=== PATIENT | female | born 1965 | race Caucasian/White ===

== ENCOUNTER 2016-09-08 06:28 | Emergency (ER) | payer BC ==
[2016-09-08] MEDS ORDERED: ONDANSETRON 4 MG ORAL DISINTEGRATING TAB (S0181) As Ordered ONE (07:30)
[2016-09-08] MEDS ORDERED: NORCO, ANEXSIA 5/325MG TABLET (HYDROcodone/ACETAMINOPHEN) As Ordered ONE (07:30)
--- NOTE | 2016-09-08 08:01 | REP ---
Clinical: Trauma. Technique: Internal rotation, external rotation, and Y view of the right shoulder. Findings: There is a comminuted fracture involving the distal clavicle. The glenohumeral joint appears intact without fracture or dislocation. The acromion process appears intact. The coracoid process appears intact. Impression: Comminuted fracture of the distal clavicle. Signed by Marlon Gonzalez MD 09/08/2016 07:53 A
--- NOTE | 2016-09-08 08:40 | EDDOCDS ---
Physician Documentation [facility] Name: Kiara Del Valle Age: 51 yrs Sex: Female : 1965 Arrival Date: 09/08/2016 Time: 06:28 Bed 5 Private MD: Disposition: 09/08/16 08:25 Discharged to Home/Self Care. Impression: Fracture of clavicle - Closed Comminuted Fracture involving the Right distal clavicle. - Condition is Stable. - Discharge Instructions: Clavicle Fracture, [id number]. - Prescriptions for [place] 5- 325 mg Oral Tablet - take 1 tablet by ORAL route every 6 hours As needed MDD: 4 tabs; 20 tablet. ZOFRAN ODT 4 mg - dissolve 1 tablet by ORAL route 4 times per day As needed do not chew, do not swallow whole; 10 tablet. - Medication Reconciliation, Referral List Call for Appointment, Local Pharmacy Hours form. - Follow up: [facility]; When: 1 - 2 days; Reason: Further diagnostic work-up, Recheck today's complaints, Continuance of care. Follow up: Emergency Department; Reason: Worsening of conditions. - Problem is new. - Symptoms have improved. Historical: - Allergies: Contrast Dye; - Home Meds: 1. none - PMHx: none; - PSHx: none; - Social history: Smoking status: Patient uses tobacco products, current every day smoker. No barriers to communication noted, The patient speaks fluent Micronesian. - Family history: Not pertinent. - : The pt / caregiver states he / she is not on anticoagulants. Home medication list is obtained from the patient. - Exposure Risk Screening:: None identified. 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 5 in. (165.10 cm) (R); Pain 10/10; 08:33 BP 126 / 84; Pulse 78; Resp 16; Temp 98.2(O); Pulse Ox 98% on R/A; Pain 8/10; ck1 08:39 Pain 8/10; ck1 06:34 Body Mass Index 23.30 (63.50 kg, 165.10 cm) af2 Procedures: 08:24 Fracture care/splinting: Splint applied to right clavicle using sling, applied by ef1 nurse. Examined by me, post splint application: neurovascular intact, 2+ distal pulses palpable, brisk capillary refill noted, Patient tolerated well. MDM: 06:41 Shoulder, Complete Ordered. EDMS 07:27 HYDROcodone-acetaminophen 5 mg-325 mg 1 tabs PO once ordered. ef1 07:27 Ondansetron ODT Oral Disintegrating Tablet 4 mg PO once ordered. ef1 07:27 Ice Pack ordered. ef1 07:37 Financial registration complete. hs2 07:45 PENDING SALE TO [facility] Payment Agreement was scanned into [employer] and attached to record. hs2 08:21 Sling ordered. ef1 Administered Medications: 07:32 Drug: HYDROcodone-acetaminophen 1 tabs [hydrocodone 5 mg-acetaminophen 325 mg tablet (1 mlb1 tabs)] Route: PO; 08:39 Follow up: Pain 04/03 Adult; Response: Confirmed pt not driving.; No Adverse Reaction; ck1 Pain is decreased 07:32 Drug: Ondansetron ODT 4 mg [ondansetron 4 mg disintegrating tablet (1 tabs)] Route: PO; mlb1 Signatures: Dispatcher [employer] EDMS Andie Chin,RN RN ck1 Jeane Mederos, PA-C PAZohraC ef1 Nisha Cabrera RN RN af2 Elsy Sheth, Reg Reg hs2 Boyd Ruiz RN mlb1 The chart was reviewed and I authenticate all verbal orders and agree with the evaluation and treatment provided.Attachments: 07:45 PENDING S[facility] TO [facility] Payment Agreement hs2 MTDD
--- NOTE | 2016-09-08 08:40 | EDDOCDS ---
Nurse's Notes [facility] Name: Kiara Del Valle Age: 51 yrs Sex: Female : 1965 Arrival Date: 09/08/2016 Time: 06:28 Bed 5 Private MD: Diagnosis: Fracture of clavicle-Closed Comminuted Fracture involving the Right distal clavicle Presentation: 09/08 06:36 Presenting complaint: Patient states: tripped and landed on right shoulder, clavicle af2 area. Adult Sepsis Screening: The patient does not have new or worsening altered mentation. Patient's respiratory rate is less than 22. Systolic blood pressure is greater than 100. Patient has a qSOFA score of 0- Negative Sepsis Screen. Suicide/Homicide risk assessment- the patient denies having any suicidal and/or homicidal ideations and does not present with any other emotional, behavioral or mental health complaints. 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 Transition of care: patient was not received from another setting of care. 06:36 Acuity: TALAT Level 4 af2 06:36 Method Of Arrival: Walkin/Carried/Asstd af2 Triage Assessment: 06:37 General: Appears uncomfortable, Behavior is cooperative. Pain: Location: anterior af2 aspect of right shoulder Pain currently is 10 out of 10 on a pain scale. Pt Declines HIV testing. Musculoskeletal: pt guarding right shoulder, movement limited due to pain. 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 none - PMHx: none; - PSHx: none; - Social history: Smoking status: Patient uses tobacco products, current every day smoker. No barriers to communication noted, The patient speaks fluent Pashto. - Family history: Not pertinent. - : The pt / caregiver states he / she is not on anticoagulants. Home medication list is obtained from the patient. - Exposure Risk Screening:: None identified. Screenin:34 Screening information is obtained from the patient. Fall risk: No risks identified. ck1 Assistance ADL's: requires no assistance with activities of daily living. Abuse/DV Screen: The patient / caregiver reports he/she is: not in a situation that causes fear, pain or injury. Nutritional screening: No deficits noted. Advance Directives: Currently, there is no health care proxy. home support is adequate. Assessment: 06:42 General: Appears uncomfortable. General: Patient reports tingling in right arm. nn1 Swelling noted of right shoulder. Patient guarding right shoulder. . Pain: Location: anterior aspect of right shoulder Pain currently is 10 out of 10 on a pain scale. Neurological: Level of Consciousness is awake, alert, Oriented to person, place, time. Respiratory: Airway is patent Respiratory effort is even, unlabored, Respiratory pattern is regular, symmetrical. Musculoskeletal: cervical spine is non-tender. Circulation, motion, and sensation intact Capillary refill < 3 seconds Range of motion limited in right shoulder Swelling present in right trapezius and right scapular area. 07:30 General: Appears uncomfortable, Behavior is appropriate for age, cooperative. Pain: mlb1 Location: right clavicle Pain currently is 10 out of 10 on a pain scale. Musculoskeletal: Circulation, motion, and sensation intact. 08:38 General: Appears in no apparent distress, comfortable, Behavior is appropriate for age, ck1 cooperative. Pain: Location: right shoulder Pain currently is 8 out of 10 on a pain scale. Neurological: Level of Consciousness is awake, alert, obeys commands, Oriented to person, place, time. Derm: Skin is intact, is healthy with good turgor, Skin is pink, warm & dry. Musculoskeletal: Circulation, motion, and sensation intact Range of motion limited in right shoulder. Vital Signs: 06:34 BP 148 / 91 LA Standing (auto/); Pulse 89; Resp 18 S; Temp 97.5(O); Pulse Ox 98% on af2 R/A; Weight 63.5 kg (R); Height 5 ft. 5 in. (165.10 cm) (R); Pain 10/10; 08:33 BP 126 / 84; Pulse 78; Resp 16; Temp 98.2(O); Pulse Ox 98% on R/A; Pain 8/10; ck1 08:39 Pain 8/10; ck1 06:34 Body Mass Index 23.30 (63.50 kg, 165.10 cm) af2 Vitals: 06:34 Log In Time: September 08, 2016 at 06:28. af2 ED Course: 06:29 Patient visited by Dalia Weaver. gjb 06:29 Patient moved to Waiting gjb 06:37 Triage Initiated af2 06:38 Patient visited by Nisha Cabrera RN. af2 06:38 Patient moved to 5 af2 06:44 Patient visited by Courtney Mike RN. kas2 07:07 [facility] Mederos [facility]C [facility] ef1 07:07 Hollis Mcgee MD is Attending Physician. ef1 07:07 Patient visited by Jeane Mederos PA-C. ef1 07:41 Patient visited by Jeane Mederos PA-C. ef1 07:45 [facility] Payment Agreement was scanned into [employer] and attached to record. hs2 07:56 Patient visited by Boyd Ruiz RN. mlb1 08:20 Patient visited by Jeane Mederos PA-C. ef1 08:[facility]. ef1 08:32 Shoulder, Complete Returned. EDMS 08:34 The patient / caregiver is instructed regarding the plan of care and ED course. ck1 08:34 No IV's were initiated during this patient's visit. No procedures done that require ck1 assistance. 08:38 Sling applied to right arm. Patient with positive distal sensation and brisk distal ck1 capillary refill after application. Administered Medications: 07:32 Drug: HYDROcodone-acetaminophen 1 tabs [hydrocodone 5 mg-acetaminophen 325 mg tablet (1 mlb1 tabs)] Route: PO; 08:39 Follow up: Pain 8/10 Adult; Response: Confirmed pt not driving.; No Adverse Reaction; ck1 Pain is decreased 07:32 Drug: Ondansetron ODT 4 mg [ondansetron 4 mg disintegrating tablet (1 tabs)] Route: PO; mlb1 Order Results: Radiology Order: Shoulder, Complete Test: Shoulder, Complete REASON FOR EXAMINATION: Trauma; Clinical: Trauma.; ; Technique: Internal rotation, external rotation, and Y view of the right; shoulder.; ; Findings:; There is a comminuted fracture involving the distal clavicle. The glenohumeral; joint appears intact without fracture or dislocation. The acromion process; appears intact. The coracoid process appears intact.; ; Impression:; Comminuted fracture of the distal clavicle.; ; ; Signed by; Marlon Gonzalez MD 09/08/2016 07:53 A; Outcome: 08:25 Discharge ordered by Provider. ef1 08:34 Discharge Assessment: Patient awake, alert and oriented x 3. No cognitive and/or ck1 functional deficits noted. Patient verbalized understanding of disposition instructions. patient administered narcotics - yes. Pt provided with safe discharge. The following High Risk Discharge criteria are identified: None. Discharged to home ambulatory. Condition: stable. No special radiology studies were completed. Property :Personal belongings accompany Pt. 08:35 Discharge instructions given to patient, Instructed on discharge instructions, follow ck1 up and referral plans. medication usage, Demonstrated understanding of instructions, medications, Pt was receptive of discharge instructions/ teaching. Prescriptions given X 2. 08:39 Patient left the ED. ck1 Signatures: Dispatcher [employer] EDPR Boyd Ruiz RN RN mlb1 Andie ChinRN RN ck1 Jeane Mederos, PA-C PA-C ef1 Nisha Cabrera,RN RN af2 Wenceslao Lee,RN RN nn1 Dalia Weaver Hillary, Reg Reg hs2 Courtney Mike,RN RN kas2 MTDD
--- NOTE | 2016-09-10 09:41 | EDDOCDS ---
Nurse's Notes [facility] Name: Kiara Del Valle Age: 51 yrs Sex: Female : 1965 Arrival Date: 09/08/2016 Time: 06:28 Bed 5 Private MD: Diagnosis: Fracture of clavicle-Closed Comminuted Fracture involving the Right distal clavicle Presentation: 09/08 06:36 Presenting complaint: Patient states: tripped and landed on right shoulder, clavicle af2 area. Adult Sepsis Screening: The patient does not have new or worsening altered mentation. Patient's respiratory rate is less than 22. Systolic blood pressure is greater than 100. Patient has a qSOFA score of 0- Negative Sepsis Screen. Suicide/Homicide risk assessment- the patient denies having any suicidal and/or homicidal ideations and does not present with any other emotional, behavioral or mental health complaints. Status: Patient is not a general service technician or dependent. Transition of care: patient was not received from another setting of care. 06:36 Acuity: TALAT Level 4 af2 06:36 Method Of Arrival: Walkin/Carried/Asstd af2 Triage Assessment: 06:37 General: Appears uncomfortable, Behavior is cooperative. Pain: Location: anterior af2 aspect of right shoulder Pain currently is 10 out of 10 on a pain scale. Pt Declines HIV testing. Musculoskeletal: pt guarding right shoulder, movement limited due to pain. 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 none - PMHx: none; - PSHx: none; - Social history: Smoking status: Patient uses tobacco products, current every day smoker. No barriers to communication noted, The patient speaks fluent Lithuanian. - Family history: Not pertinent. - : The pt / caregiver states he / she is not on anticoagulants. Home medication list is obtained from the patient. - Exposure Risk Screening:: None identified. Screenin:34 Screening information is obtained from the patient. Fall risk: No risks identified. ck1 Assistance ADL's: requires no assistance with activities of daily living. Abuse/DV Screen: The patient / caregiver reports he/she is: not in a situation that causes fear, pain or injury. Nutritional screening: No deficits noted. Advance Directives: Currently, there is no health care proxy. home support is adequate. Assessment: 06:42 General: Appears uncomfortable. General: Patient reports tingling in right arm. nn1 Swelling noted of right shoulder. Patient guarding right shoulder. . Pain: Location: anterior aspect of right shoulder Pain currently is 10 out of 10 on a pain scale. Neurological: Level of Consciousness is awake, alert, Oriented to person, place, time. Respiratory: Airway is patent Respiratory effort is even, unlabored, Respiratory pattern is regular, symmetrical. Musculoskeletal: cervical spine is non-tender. Circulation, motion, and sensation intact Capillary refill < 3 seconds Range of motion limited in right shoulder Swelling present in right trapezius and right scapular area. 07:30 General: Appears uncomfortable, Behavior is appropriate for age, cooperative. Pain: mlb1 Location: right clavicle Pain currently is 10 out of 10 on a pain scale. Musculoskeletal: Circulation, motion, and sensation intact. 08:38 General: Appears in no apparent distress, comfortable, Behavior is appropriate for age, ck1 cooperative. Pain: Location: right shoulder Pain currently is 8 out of 10 on a pain scale. Neurological: Level of Consciousness is awake, alert, obeys commands, Oriented to person, place, time. Derm: Skin is intact, is healthy with good turgor, Skin is pink, warm & dry. Musculoskeletal: Circulation, motion, and sensation intact Range of motion limited in right shoulder. Vital Signs: 06:34 BP 148 / 91 LA Standing (auto/); Pulse 89; Resp 18 S; Temp 97.5(O); Pulse Ox 98% on af2 R/A; Weight 63.5 kg (R); Height 5 ft. 5 in. (165.10 cm) (R); Pain 10/10; 08:33 BP 126 / 84; Pulse 78; Resp 16; Temp 98.2(O); Pulse Ox 98% on R/A; Pain 8/10; ck1 08:39 Pain 8/10; ck1 06:34 Body Mass Index 23.30 (63.50 kg, 165.10 cm) af2 Vitals: 06:34 Log In Time: September 08, 2016 at 06:28. af2 ED Course: 06:29 Patient visited by Dalia Weaver. gjb 06:29 Patient moved to Waiting gjb 06:37 Triage Initiated af2 06:38 Patient visited by Nisha Cabrera RN. af2 06:38 Patient moved to 5 af2 06:44 Patient visited by Courtney Mike RN. kas2 07:07 Jeane Mederos [facility]C [facility] ef1 07:07 Hollis Mcgee MD is Attending Physician. ef1 07:07 Patient visited by Jeane Mederos PA-C. ef1 07:41 Patient visited by Jeane Mederos PA-C. ef1 07:45 [facility] Payment Agreement was scanned into [employer] and attached to record. hs2 07:56 Patient visited by Boyd Ruiz RN. mlb1 08:20 Patient visited by Jeane Mederos PA-C. ef1 08:[facility]. ef1 08:32 Shoulder, Complete Returned. EDMS 08:34 The patient / caregiver is instructed regarding the plan of care and ED course. ck1 08:34 No IV's were initiated during this patient's visit. No procedures done that require ck1 assistance. 08:38 Sling applied to right arm. Patient with positive distal sensation and brisk distal ck1 capillary refill after application. 11:53 T-Sheet-- Draft Copy was scanned into [employer] and attached to record. [facility] 09/09 12:02 Radiology Report was scanned into [employer] and attached to record. gb Administered Medications: 09/08 07:32 Drug: HYDROcodone-acetaminophen 1 tabs [hydrocodone 5 mg-acetaminophen 325 mg tablet (1 mlb1 tabs)] Route: PO; 08:39 Follow up: Pain 8/10 Adult; Response: Confirmed pt not driving.; No Adverse Reaction; ck1 Pain is decreased 07:32 Drug: Ondansetron ODT 4 mg [ondansetron 4 mg disintegrating tablet (1 tabs)] Route: PO; mlb1 Order Results: Radiology Order: Shoulder, Complete Test: Shoulder, Complete REASON FOR EXAMINATION: Trauma; Clinical: Trauma.; ; Technique: Internal rotation, external rotation, and Y view of the right; shoulder.; ; Findings:; There is a comminuted fracture involving the distal clavicle. The glenohumeral; joint appears intact without fracture or dislocation. The acromion process; appears intact. The coracoid process appears intact.; ; Impression:; Comminuted fracture of the distal clavicle.; ; ; Signed by; Marlon Gonzalez MD 09/08/2016 07:53 A; Outcome: 08:25 Discharge ordered by Provider. ef1 08:34 Discharge Assessment: Patient awake, alert and oriented x 3. No cognitive and/or ck1 functional deficits noted. Patient verbalized understanding of disposition instructions. patient administered narcotics - yes. Pt provided with safe discharge. The following High Risk Discharge criteria are identified: None. Discharged to home ambulatory. Condition: stable. No special radiology studies were completed. Property :Personal belongings accompany Pt. 08:35 Discharge instructions given to patient, Instructed on discharge instructions, follow ck1 up and referral plans. medication usage, Demonstrated understanding of instructions, medications, Pt was receptive of discharge instructions/ teaching. Prescriptions given X 2. 08:39 Patient left the ED. ck1 Signatures: Dispatcher [employer] EDMS Bernie Grover, Reg Reg gb Boyd Ruiz RN RN mlb1 Andie ChinRN RN ck1 Jeane Mederos, PA-C PA-C ef1 Nisha Cabrera,RN RN af2 Wenceslao LeeRN RN nn1 Dalia Weaver gjb Elsy Sheth, Reg Reg hs2 Courtney Mike,RN RN [facility]2 Mireille Shi Chart Complete MTDD
--- NOTE | 2016-09-10 09:41 | EDDOCDS ---
Physician Documentation [facility] Name: Kiara Del Valle Age: 51 yrs Sex: Female : 1965 Arrival Date: 09/08/2016 Time: 06:28 Bed 5 Private MD: Disposition: 09/08/16 08:25 Discharged to Home/Self Care. Impression: Fracture of clavicle - Closed Comminuted Fracture involving the Right distal clavicle. - Condition is Stable. - Discharge Instructions: Clavicle Fracture, [id number]. - Prescriptions for [place] 5- 325 mg Oral Tablet - take 1 tablet by ORAL route every 6 hours As needed MDD: 4 tabs; 20 tablet. ZOFRAN ODT 4 mg - dissolve 1 tablet by ORAL route 4 times per day As needed do not chew, do not swallow whole; 10 tablet. - Medication Reconciliation, Referral List Call for Appointment, Local Pharmacy Hours form. - Follow up: [facility]; When: 1 - 2 days; Reason: Further diagnostic work-up, Recheck today's complaints, Continuance of care. Follow up: Emergency Department; Reason: Worsening of conditions. - Problem is new. - Symptoms have improved. Historical: - Allergies: Contrast Dye; - Home Meds: 1. none - PMHx: none; - PSHx: none; - Social history: Smoking status: Patient uses tobacco products, current every day smoker. No barriers to communication noted, The patient speaks fluent Pashto. - Family history: Not pertinent. - : The pt / caregiver states he / she is not on anticoagulants. Home medication list is obtained from the patient. - Exposure Risk Screening:: None identified. 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 5 in. (165.10 cm) (R); Pain 10/10; 08:33 BP 126 / 84; Pulse 78; Resp 16; Temp 98.2(O); Pulse Ox 98% on R/A; Pain 8/10; ck1 08:39 Pain 8/10; ck1 06:34 Body Mass Index 23.30 (63.50 kg, 165.10 cm) af2 Procedures: 08:24 Fracture care/splinting: Splint applied to right clavicle using sling, applied by ef1 nurse. Examined by me, post splint application: neurovascular intact, 2+ distal pulses palpable, brisk capillary refill noted, Patient tolerated well. MDM: 06:41 Shoulder, Complete Ordered. EDMS 07:27 HYDROcodone-acetaminophen 5 mg-325 mg 1 tabs PO once ordered. ef1 07:27 Ondansetron ODT Oral Disintegrating Tablet 4 mg PO once ordered. ef1 07:27 Ice Pack ordered. ef1 07:37 Financial registration complete. hs2 07:45 [facility] Payment Agreement was scanned into [employer] and attached to record. hs2 08:21 Sling ordered. ef1 11:53 T-Sheet-- Draft Copy was scanned into [employer] and attached to record. [facility] 09/09 12:02 Radiology Report was scanned into [employer] and attached to record. gb Administered Medications: 09/08 07:32 Drug: HYDROcodone-acetaminophen 1 tabs [hydrocodone 5 mg-acetaminophen 325 mg tablet (1 mlb1 tabs)] Route: PO; 08:39 Follow up: Pain 8/10 Adult; Response: Confirmed pt not driving.; No Adverse Reaction; ck1 Pain is decreased 07:32 Drug: Ondansetron ODT 4 mg [ondansetron 4 mg disintegrating tablet (1 tabs)] Route: PO; mlb1 Signatures: Dispatcher [employer] EDDE Bernie Grover, Reg Reg gb Andie Chin RN RN ck1 Jeane Mederos, PA-C PAZohraC ef1 Nisha Cabrera RN RN af2 Elsy Sheth, Reg Reg hs2 Mireille Shi Michael B RN mlb1 The chart was reviewed and I authenticate all verbal orders and agree with the evaluation and treatment provided.Attachments: 07:45 [facility] Payment Agreement hs2 11:53 T-Sheet-- Draft Copy [facility] Chart Complete MTDD
--- NOTE | 2016-09-10 09:41 | EDDOCDS ---
Physician Documentation [facility] Name: Kiara Del Valle Age: 51 yrs Sex: Female : 1965 Arrival Date: 09/08/2016 Time: 06:28 Bed 5 Private MD: Disposition: 09/08/16 08:25 Discharged to Home/Self Care. Impression: Fracture of clavicle - Closed Comminuted Fracture involving the Right distal clavicle. - Condition is Stable. - Discharge Instructions: Clavicle Fracture, [id number]. - Prescriptions for [place] 5- 325 mg Oral Tablet - take 1 tablet by ORAL route every 6 hours As needed MDD: 4 tabs; 20 tablet. ZOFRAN ODT 4 mg - dissolve 1 tablet by ORAL route 4 times per day As needed do not chew, do not swallow whole; 10 tablet. - Medication Reconciliation, Referral List Call for Appointment, Local Pharmacy Hours form. - Follow up: [facility]; When: 1 - 2 days; Reason: Further diagnostic work-up, Recheck today's complaints, Continuance of care. Follow up: Emergency Department; Reason: Worsening of conditions. - Problem is new. - Symptoms have improved. Historical: - Allergies: Contrast Dye; - Home Meds: 1. none - PMHx: none; - PSHx: none; - Social history: Smoking status: Patient uses tobacco products, current every day smoker. No barriers to communication noted, The patient speaks fluent Swedish. - Family history: Not pertinent. - : The pt / caregiver states he / she is not on anticoagulants. Home medication list is obtained from the patient. - Exposure Risk Screening:: None identified. ADMINISTRATIVE COORDINATOR: 09/08 06:34 LMP 09/08/2016 af2 Vital Signs: 06:34 BP 148 / 91 LA Standing (auto/); Pulse 89; Resp 18 S; Temp 97.5(O); Pulse Ox 98% on af2 R/A; Weight 63.5 kg / 139.99 lbs (R); Height 5 ft. 5 in. (165.10 cm) (R); Pain 10/10; 08:33 BP 126 / 84; Pulse 78; Resp 16; Temp 98.2(O); Pulse Ox 98% on R/A; Pain 8/10; ck1 08:39 Pain 8/10; ck1 06:34 Body Mass Index 23.30 (63.50 kg, 165.10 cm) af2 Procedures: 08:24 Fracture care/splinting: Splint applied to right clavicle using sling, applied by ef1 nurse. Examined by me, post splint application: neurovascular intact, 2+ distal pulses palpable, brisk capillary refill noted, Patient tolerated well. MDM: 06:41 Shoulder, Complete Ordered. EDMS 07:27 HYDROcodone-acetaminophen 5 mg-325 mg 1 tabs PO once ordered. ef1 07:27 Ondansetron ODT Oral Disintegrating Tablet 4 mg PO once ordered. ef1 07:27 Ice Pack ordered. ef1 07:37 Financial registration complete. hs2 07:45 [facility] Payment Agreement was scanned into [employer] and attached to record. hs2 08:21 Sling ordered. ef1 11:53 T-Sheet-- Draft Copy was scanned into [employer] and attached to record. [facility] [place] 09/09 12:02 Radiology Report was scanned into [employer] and attached to record. gb Administered Medications: 09/08 07:32 Drug: HYDROcodone-acetaminophen 1 tabs [hydrocodone 5 mg-acetaminophen 325 mg tablet (1 mlb1 tabs)] Route: PO; 08:39 Follow up: Pain 8/10 Adult; Response: Confirmed pt not driving.; No Adverse Reaction; ck1 Pain is decreased 07:32 Drug: Ondansetron ODT 4 mg [ondansetron 4 mg disintegrating tablet (1 tabs)] Route: PO; mlb1 Signatures: Dispatcher Med[employer] EDMD Bernie Grover, Reg Reg gb Andie Chin RN RN ck1 Jeane Mederos, PA-C PAZohraC ef1 Nisha Cabrera RN RN af2 Elsy Sheth, Reg Reg hs2 Mireille Shi Michael B RN mlb1 The chart was reviewed and I authenticate all verbal orders and agree with the evaluation and treatment provided.Attachments: 07:45 [facility] Payment Agreement hs2 11:53 T-Sheet-- Draft Copy [facility] [place] [facility] Chart Complete MTDD
== END 2016-09-08 08:39 | disposition home or self-care (01) ==
LOC: M ED 06:28
DX: S42.031A Displaced fracture of lateral end of right clavicle, initial encounter for closed fracture (principal); W01.0XXA Fall on same level from slipping, tripping and stumbling without subsequent striking against object, initial encounter; Y92.019 Unspecified place in single-family (private) house as the place of occurrence of the external cause; Y93.89 Activity, other specified; Y99.8 Other external cause status; F17.210 Nicotine dependence, cigarettes, uncomplicated; Z91.041 Radiographic dye allergy status

== ENCOUNTER → 2018-10-09 | Outpatient (REF) | payer BC | LOC: M LAB REF 19:16 | PROVIDERS: ATTEND Physician Assistant Medical | DX: N39.0 Urinary tract infection, site not specified (principal) ==

== ENCOUNTER → 2019-03-11 | Outpatient (REF) | payer BC ==
[2019-03-11 11:39] LABS: BASO % 0.5 % (0.0-1.0); EOS % 0.8 % (0.0-3.0); HEMATOCRIT 39.7 % (36.0-47.0); HEMOGLOBIN 13.6 g/dl (12.0-15.5); LYMPH % 24.8 % (24.0-44.0); MEAN CORPUSCULAR HEMOGLOBIN 31.2 pg (27.0-33.0); MEAN CORPUSCULAR HGB CONC 34.3 g/dl (32.0-36.5); MEAN CORPUSCULAR VOLUME 91.1 fl (80.0-96.0); MONO # 0.5 10^3/uL (0.0-0.8); MONO % 13.8 % (0.0-5.0); NEUTROPHILS # 2.3 10^3/uL (1.8-7.7); NEUTROPHILS % 59.8 % (36.0-66.0); PLATELET COUNT, AUTOMATED 221 10^3/uL (150-450); RED BLOOD COUNT 4.36 10^6/uL (4.00-5.40); WHITE BLOOD COUNT 3.9 10^3/uL (4.0-10.0)
[2019-03-11 12:21] LABS: ALBUMIN 4.1 GM/DL (3.2-5.2); ALT/SGPT 43 U/L (12-78); BILIRUBIN,TOTAL 0.3 MG/DL (0.2-1.0); BLOOD UREA NITROGEN 7 MG/DL (7-18); CALCIUM LEVEL 9.6 MG/DL (8.5-10.1); CARBON DIOXIDE LEVEL 24 MEQ/L (21-32); CHLORIDE LEVEL 103 MEQ/L (98-107); CHOLESTEROL LEVEL 212 MG/DL (<200); CHOLESTEROL RISK RATIO 1.944 (<5); CREATININE FOR GFR 0.55 MG/DL (0.55-1.30); FREE T4 0.78 NG/DL (0.76-1.46); GLOMERULAR FILTRATION RATE > 60.0 (>51); GLUCOSE, FASTING 71 MG/DL (70-100); HDL CHOLESTEROL 109 MG/DL (>40); LDL CHOLESTEROL 91 MG/DL (<100); NON-HDL-C 103 MG/DL; POTASSIUM SERUM 4.2 MEQ/L (3.5-5.1); SODIUM LEVEL 136 MEQ/L (136-145); TOTAL 25(OH) VITAMIN D 23.4 NG/ML (30.0-100.0); TRIGLYCERIDES LEVEL 60 MG/DL (<150)
== END ==
LOC: M LABNEURO 07:36
PROVIDERS: ATTEND Physician Assistant
DX: Z13.220 Encounter for screening for lipoid disorders (principal); Z13.29 Encounter for screening for other suspected endocrine disorder; Z13.21 Encounter for screening for nutritional disorder

== ENCOUNTER → 2019-06-03 | Outpatient (REF) | payer BC ==
[2019-06-03 12:43] LABS: BASO % 0.6 % (0.0-1.0); EOS % 0.3 % (0.0-3.0); HEMATOCRIT 42.3 % (36.0-47.0); HEMOGLOBIN 13.7 g/dl (12.0-15.5); LYMPH # 0.9 10^3/uL (1.5-5.0); LYMPH % 24.8 % (24.0-44.0); MEAN CORPUSCULAR HEMOGLOBIN 30.9 pg (27.0-33.0); MEAN CORPUSCULAR HGB CONC 32.4 g/dl (32.0-36.5); MEAN CORPUSCULAR VOLUME 95.3 fl (80.0-96.0); MONO # 0.6 10^3/uL (0.0-0.8); MONO % 16.9 % (0.0-5.0); NEUTROPHILS % 57.1 % (36.0-66.0); PLATELET COUNT, AUTOMATED 208 10^3/uL (150-450); RED BLOOD COUNT 4.44 10^6/uL (4.00-5.40); WHITE BLOOD COUNT 3.4 10^3/uL (4.0-10.0)
[2019-06-03 12:57] LABS: ALT/SGPT 31 U/L (12-78); BLOOD UREA NITROGEN 12 MG/DL (7-18); CARBON DIOXIDE LEVEL 29 MEQ/L (21-32); CHLORIDE LEVEL 100 MEQ/L (98-107); GLOMERULAR FILTRATION RATE > 60.0 (>51); GLUCOSE, FASTING 88 MG/DL (70-100); POTASSIUM SERUM 4.5 MEQ/L (3.5-5.1); SODIUM LEVEL 135 MEQ/L (136-145)
[2019-06-03 12:58] LABS: ALBUMIN 4.3 GM/DL (3.2-5.2); BILIRUBIN,TOTAL 0.7 MG/DL (0.2-1.0); CHOLESTEROL LEVEL 204 MG/DL (<200); CHOLESTEROL RISK RATIO 1.743 (<5); HDL CHOLESTEROL 117 MG/DL (>40); LDL CHOLESTEROL 78 MG/DL (<100); NON-HDL-C 87 MG/DL; TOTAL 25(OH) VITAMIN D 55.4 NG/ML (30.0-100.0); TOTAL PROTEIN 7.1 GM/DL (6.4-8.2); TRIGLYCERIDES LEVEL 43 MG/DL (<150)
== END ==
LOC: M LABDRAW1 12:17
PROVIDERS: ATTEND Physician Assistant
DX: E55.9 Vitamin D deficiency, unspecified (principal); D72.819 Decreased white blood cell count, unspecified; E78.5 Hyperlipidemia, unspecified

== ENCOUNTER → 2021-03-14 | Outpatient (CLI) | payer BC ==
[~2021-03-14] MED LIST: VITA500045 PO
--- NOTE | 2021-03-14 08:27 | REP ---
INDICATION: LIVER LESION. COMPARISON: Ultrasound 02/18/2013, three-phase CT 02/11/2013 TECHNIQUE: Right upper quadrant standard sonography with color imaging. FINDINGS: Of the liver is not grossly enlarged with vertical diameter 15.2 cm in the midclavicular line. There is homogeneous but slightly hyperechoic echotexture consistent with diffuse fatty infiltration. There is no discrete mass visible. Particular attention to the posterior right lobe of the liver medially near the upper pole the right kidney where a liver lesion is seen the studies 8 years ago. There is no visible mass or sonographic abnormality in this region today. There is no evidence of ascites. The gallbladder shows no stone, sludge, wall thickening or pericholecystic fluid. Common bile duct is 5.4 mm and without a visible stone. Visible portions of pancreas were unremarkable. Its tail is obscured by gas. Right kidney is 10.2 x 5.6 x 4.8 cm without gross hydronephrosis, mass or stone. No generalized ascites in the upper abdomen. IMPRESSION: Some fatty infiltration liver without hepatomegaly, focal hepatic mass or intrahepatic biliary dilatation. The hypoechoic lesion seen on ultrasound and CT 8 years ago is not seen on this current study. Gallbladder, common bile duct, visible portion of the pancreas and right kidney are unremarkable. No ascites. <Electronically signed by Mauri Mclaughlin > 03/14/21 [id number]
== END ==
LOC: M RAD 06:56
PROVIDERS: ATTEND Physician Assistant
DX: K76.9 Liver disease, unspecified (principal)

== ENCOUNTER → 2023-06-24 | Outpatient (REF) | payer BC ==
[2023-06-24 13:43] LABS: HEMATOCRIT 45.1 % (36.0-47.0); HEMOGLOBIN 14.9 g/dl (12.0-15.5); MEAN CORPUSCULAR HEMOGLOBIN 31.5 pg (27.0-33.0); MEAN CORPUSCULAR VOLUME 95.3 fl (80.0-96.0); PLATELET COUNT, AUTOMATED 225 10^3/uL (150-450); RED BLOOD COUNT 4.73 10^6/uL (4.00-5.40); WHITE BLOOD COUNT 4.7 10^3/uL (4.0-10.0)
[2023-06-24 14:12] LABS: ALBUMIN 4.4 G/DL (3.2-5.2); ALKALINE PHOSPHATASE 90 U/L (46-116); ALT/SGPT 35 U/L (7.0-40); AST/SGOT 30 U/L (<34); BILIRUBIN,TOTAL 0.5 MG/DL (0.3-1.2); BLOOD UREA NITROGEN 8 MG/DL (9-23); CALCIUM LEVEL 10.3 MG/DL (8.5-10.1); CARBON DIOXIDE LEVEL 26 MMOL/L (20-31); CHLORIDE LEVEL 101 MMOL/L (98-107); CHOLESTEROL LEVEL 278 MG/DL (<200); CHOLESTEROL RISK RATIO 3.08 (<5); CREATININE FOR GFR 0.57 MG/DL (0.55-1.30); GLOMERULAR FILTRATION RATE > 60.0 (>51); GLUCOSE, FASTING 83 MG/DL (60-100); LDL CHOLESTEROL 173.6 MG/DL (<100); SODIUM LEVEL 138 MMOL/L (136-145); TOTAL PROTEIN 7.5 G/DL (5.7-8.2); TRIGLYCERIDES LEVEL 72 MG/DL (<150)
== END ==
LOC: M LABDRWAD 13:01
PROVIDERS: ATTEND Physician Assistant
DX: K76.0 Fatty (change of) liver, not elsewhere classified (principal); F17.210 Nicotine dependence, cigarettes, uncomplicated; Z13.220 Encounter for screening for lipoid disorders; E66.3 Overweight; Z13.1 Encounter for screening for diabetes mellitus

== ENCOUNTER → 2023-06-24 | Outpatient (CLI) | payer BC | LOC: M WHC 10:55 | PROVIDERS: ATTEND Physician Assistant | DX: Z12.31 Encounter for screening mammogram for malignant neoplasm of breast (principal); Z53.9 Procedure and treatment not carried out, unspecified reason ==

== ENCOUNTER → 2023-12-17 | Outpatient (REF) | payer BC | LOC: M SFHCADAM 17:21 | PROVIDERS: ATTEND Physician Assistant | DX: Z12.4 Encounter for screening for malignant neoplasm of cervix (principal); R87.610 Atypical squamous cells of undetermined significance on cytologic smear of cervix (ASC-US) | CPT/HCPCS: 87624; G0123 ==

== ENCOUNTER → 2023-12-18 | Outpatient (REF) | payer BC | LOC: M SFHCADAM 19:10 | PROVIDERS: ATTEND Physician Assistant | DX: Z12.4 Encounter for screening for malignant neoplasm of cervix (principal) ==

== ENCOUNTER → 2024-01-28 | Outpatient (CLI) | payer BC | LOC: M RAD 13:36 | PROVIDERS: ATTEND Physician Assistant | DX: F17.210 Nicotine dependence, cigarettes, uncomplicated (principal) ==

== ENCOUNTER → 2025-04-19 | Outpatient (REF) | payer BC ==
[2025-04-19 14:22] LABS: BASO # 0.0 10^3/uL (0.0-0.2); BASO % 0.9 % (0.0-1.0); EOS # 0.0 10^3/uL (0.0-0.5); EOS % 0.6 % (0.0-3.0); LYMPH # 1.2 10^3/uL (1.5-5.0); LYMPH % 24.9 % (24.0-44.0); MONO # 0.7 10^3/uL (0.0-0.8); MONO % 14.2 % (2.0-8.0); NEUTROPHILS # 2.8 10^3/uL (1.5-8.5); NEUTROPHILS % 59.2 % (36.0-66.0); PLATELET COUNT, AUTOMATED 203 10^3/uL (150-450)
[2025-04-19 14:27] LABS: ESTIMATED AVERAGE GLUCOSE 97.0 MG/DL (60-110)
[2025-04-19 14:48] LABS: FREE T4 0.99 NG/DL (0.89-1.76)
[2025-04-19 14:49] LABS: ALT/SGPT 71 U/L (7.0-40); AST/SGOT 79 U/L (<34); CALCIUM LEVEL 9.6 MG/DL (8.5-10.1); CARBON DIOXIDE LEVEL 27 MMOL/L (20-31); CHLORIDE LEVEL 104 MMOL/L (98-107); CHOLESTEROL LEVEL 227 MG/DL (<200); CHOLESTEROL RISK RATIO 3.37 (<5); CREATININE FOR GFR 0.61 MG/DL (0.55-1.30); GLOMERULAR FILTRATION RATE > 90.0 (>51); LDL CHOLESTEROL 141.6 MG/DL (<100); NON-HDL-C 159.8 MG/DL; POTASSIUM SERUM 4.7 MMOL/L (3.5-5.1); SODIUM LEVEL 140 MMOL/L (136-145); TRIGLYCERIDES LEVEL 91 MG/DL (<150)
== END ==
LOC: M SFHCADAM 09:19
PROVIDERS: ATTEND Physician Assistant
DX: Z00.00 Encounter for general adult medical examination without abnormal findings (principal); Z12.31 Encounter for screening mammogram for malignant neoplasm of breast; R87.610 Atypical squamous cells of undetermined significance on cytologic smear of cervix (ASC-US); R87.612 Low grade squamous intraepithelial lesion on cytologic smear of cervix (LGSIL); K76.0 Fatty (change of) liver, not elsewhere classified; F17.210 Nicotine dependence, cigarettes, uncomplicated; N95.0 Postmenopausal bleeding; E78.00 Pure hypercholesterolemia, unspecified; Z13.1 Encounter for screening for diabetes mellitus

== ENCOUNTER → 2025-05-17 | Outpatient (CLI) | payer BC | LOC: M RAD 14:27 | PROVIDERS: ATTEND Physician Assistant | DX: N95.0 Postmenopausal bleeding (principal) ==

== ENCOUNTER → 2025-06-07 | Outpatient (CLI) | payer BC | LOC: M RAD 14:34 | PROVIDERS: ATTEND Physician Assistant | DX: Z87.891 Personal history of nicotine dependence (principal) ==

== ENCOUNTER → 2025-06-28 | Outpatient (CLI) | payer BC ==
[~2025-06-28] MED LIST changes: +PROHANCE 279.3MG/ML 15ML VIAL ONE
== END ==
LOC: M PLAIMG 07:43
PROVIDERS: ATTEND Physician Assistant
DX: N93.9 Abnormal uterine and vaginal bleeding, unspecified (principal); D39.11 Neoplasm of uncertain behavior of right ovary

== ENCOUNTER → 2025-08-11 | Outpatient (CLI) | payer BC ==
[~2025-08-11] MED LIST changes: -PROHANCE 279.3MG/ML 15ML VIAL ONE
== END ==
LOC: M RAD 11:22
PROVIDERS: ATTEND Physician Assistant
DX: R60.0 Localized edema (principal)